=== PATIENT | female | born 1935 | race Caucasian/White ===

== ENCOUNTER 2022-03-02 14:39 | Emergency (ER) | payer BC ==
[~2022-03-02] VITALS: Ht 152.4 cm; Wt 54.4 kg
--- NOTE | 2022-03-02 14:42 | NUR ---
BIB [id number], pt is currently in ER hallway in [facility]. The ER is saturated and there are no open beds.
[2022-03-02] MEDS ORDERED: NEOMY/BACITRA/POLYMYXIN B OINT UD PACKET TP ONE ×3 (15:15→18:57)
[2022-03-02] MEDS ORDERED: TDAP DIPH,PERTUSS,TET VAC/PF 0.5 ML DISP.SYRIN IM ONE ×2 (15:15→16:21)
[2022-03-02] MEDS ORDERED: LIDOCAINE HCL 1% 20 ML VIAL IJ ONE (15:15)
--- NOTE | 2022-03-02 15:55 | NUR ---
Pt to room 4A via EMS gurney.
--- NOTE | 2022-03-02 15:59 | NUR ---
Pt to CT via [facility] amaya noted.
[2022-03-02] MEDS ORDERED: LIDOCAINE HCL 1% 20 ML VIAL ONE (16:19)
--- NOTE | 2022-03-02 16:46 | NUR ---
TETANUS INJ. ADMINISTERED PT TOLERATED WELL
--- NOTE | 2022-03-02 17:00 | NUR ---
pt wound was irrigated with NS and padded dry with 4x4's. notified
--- NOTE | 2022-03-02 19:42 | NUR ---
HOMEROAR TO [facility] FOR ASSUMPTION OF CARE.
--- NOTE | 2022-03-02 21:26 | NUR ---
Patient chart picker by [facility] ambulance #[id number] accompanied by 2 paramedics via gurney. Patient discharge back to [facility]. All belongings and records with paramedics.
[2022-03-02 21:32] VITALS: BP 129/77
== END 2022-03-02 21:33 ==
LOC: ER 14:39
DX: S01.81XA Laceration without foreign body of other part of head, initial encounter (principal); S01.01XA Laceration without foreign body of scalp, initial encounter; W01.0XXA Fall on same level from slipping, tripping and stumbling without subsequent striking against object, initial encounter; Y92.099 Unspecified place in other non-institutional residence as the place of occurrence of the external cause; Z98.1 Arthrodesis status; S09.90XA Unspecified injury of head, initial encounter
CPT/HCPCS: 99285; 70450; 72125; 90715; 90471; 12013; 12002; J3490